=== PATIENT | male | born 1975 | race Two or more races ===

== ENCOUNTER 2016-09-08 09:32 | Emergency (ER) | payer OTHER ==
[~2016-09-08] VITALS: Ht 177.8 cm; Wt 88.5 kg
[2016-09-08 09:37] VITALS: BP 152/95
== END 2016-09-08 10:36 | disposition home or self-care (01) ==
LOC: ER 09:37
DX: K52.9 Noninfective gastroenteritis and colitis, unspecified (principal); R51 Headache; I10 Essential (primary) hypertension; M10.9 Gout, unspecified; Z88.6 Allergy status to analgesic agent